=== PATIENT | female | born 1970 | race Caucasian/White ===

== ENCOUNTER → 2017-01-07 | Outpatient (CLI) | payer BC | LOC: BRMIMAGING 14:55 | PROVIDERS: ATTEND Physician Assistant Medical | DX: Z12.31 Encounter for screening mammogram for malignant neoplasm of breast (principal) | CPT/HCPCS: G0202 ==

== ENCOUNTER → 2017-05-31 | Outpatient (CLI) | payer BC | LOC: CIMAGING 10:48 | PROVIDERS: ATTEND Physician Assistant Medical | DX: M17.11 Unilateral primary osteoarthritis, right knee (principal) | CPT/HCPCS: 73564-PO ==

== ENCOUNTER → 2018-07-04 | Outpatient (CLI) | payer BC | LOC: BRMIMAGING 15:12 | PROVIDERS: ATTEND Physician Assistant Medical | DX: Z12.31 Encounter for screening mammogram for malignant neoplasm of breast (principal) ==

== ENCOUNTER → 2018-07-18 | Outpatient (CLI) | payer BC | LOC: BRMIMAGING 09:28 | PROVIDERS: ATTEND Physician Assistant Medical | DX: R92.8 Other abnormal and inconclusive findings on diagnostic imaging of breast (principal) | CPT/HCPCS: 76641-PO ==